=== PATIENT | female | born 1975 | race Caucasian/White ===

== ENCOUNTER → 2017-10-19 | Day surgery (SDC) | payer OTHER ==
--- NOTE | 2017-10-20 07:32 | OP ---
DATE OF OPERATION: 10/19/2017 PREOPERATIVE DIAGNOSIS: Abnormal left mammography. POSTOPERATIVE DIAGNOSIS: Abnormal left mammography. PROCEDURE: Left stereotactic needle biopsy with clip. SURGEON: Joana Sainz MD ANESTHESIA: Local. COMPLICATIONS: None. This was a sterile procedure. INDICATIONS FOR PROCEDURE: Patient presented for a screening mammography that noted a cluster of fine white calcifications in the lower inner left breast. The recommendation was a needle biopsy. The procedure was discussed with all the questions answered. PROCEDURE IN DETAIL: Patient was brought to [facility]. Ana Khanna, laid prone on the OR table. Using the caudal approach, the calcifications in the inferior inner left breast were identified. A sterile prep was obtained. A target was chosen. There was a positive stroke margin. Using Betadine and 1% lidocaine, a 10-gauge AGV [employer] device was used to take several cores from this area. Cores showed calcifications within them. These were handled with the usual calcification protocol. A clip was deployed in the area. Hemostasis was ensured with direct pressure. The incision was closed with Steri-Strips. She tolerated the procedure well, left the breast imaging center in good condition. JOANA SAINZ M.D. [id number]
--- NOTE | 2017-10-20 16:18 | PATH ---
Surgical Pathology Report Patient Name: BRAXTON BREWER [facility]. Rec. #: [id number] /Age/Gender: 1975 (Age: 42) / F Account: [id number] Location: [facility] Taken: 10/19/2017 Received: 10/19/2017 Reported: 10/20/2017 Physicians: Kim Goodman M.D. Specimen(s) Received A: LEFT BREAST SPECIMEN WITH CALCIFICATIONS B: LEFT BREAST SPECIMEN WITHOUT CALCIFICATIONS Clinical History Nonpalpable lesion Mammographic findings: Suspicious Final Diagnosis A. BREAST, LEFT, WITH CALCIFICATIONS, STEREOTACTIC BIOPSY: BENIGN BREAST TISSUE SHOWING COARSE CALCIFICATIONS IN ASSOCIATION WITH BENIGN STROMA. B. BREAST, LEFT, WITHOUT CALCIFICATIONS, STEREOTACTIC BIOPSY: BENIGN BREAST TISSUE. Electronically Signed Danika Alva M.D. Gross Description A. Received in formalin, labeled "left breast with calcifications," is a 2.1 cm. in length by 0.2 cm. in diameter martines-yellow, cylindrical portion of fibroadipose tissue which is submitted in toto in one cassette. B. Received in formalin, labeled "left breast without calcification," are 7 martines-yellow, cylindrical portions of fibroadipose tissue ranging from 1.1-2.3 cm. in length and averaging 0.2 cm. in diameter. The specimen is submitted in toto in one cassette. Time to formalin fixation: 5 minutes Total formalin fixation time: Approximately 6 hours. 10/19/201710/19/2017
== END | disposition home or self-care (01) ==
LOC: FMAMMOTONE 11:17
PROVIDERS: ATTEND Surgery
PROC: 0HBU3ZX Excision of Left Breast, Percutaneous Approach, Diagnostic (ICD-10-PCS; principal; 2017-10-19)
DX: D24.2 Benign neoplasm of left breast (principal); N64.9 Disorder of breast, unspecified; R92.8 Other abnormal and inconclusive findings on diagnostic imaging of breast
CPT/HCPCS: 19081; 87899; 88305-TC; A4648